=== PATIENT | male | born 1995 | race Caucasian/White ===

== ENCOUNTER 2018-02-08 12:11 | Emergency (ER) | payer MEDICAID ==
[~2018-02-08] VITALS: Ht 175.3 cm; Wt 63.5 kg
[2018-02-08 12:20] VITALS: BP_SYST 121
[2018-02-08] MEDS: DIPH-TET-PERTUS Vaccine 0.5 ML VIAL (ADACEL) I.M. ONE (13:23)
[2018-02-08] MEDS: KETOROLAC TROMETHAMINE 60 MG/2 ML VIAL IM ONE (13:24)
[2018-02-08] MEDS: BACITRACIN 1 GM OINT TP ONE (14:03)
[2018-02-08] MEDS ORDERED: BACITRACIN 1 GM OINT TP ONE (14:30)
[2018-02-08 14:55] VITALS: BP_SYST 120
== END 2018-02-08 14:55 | disposition home or self-care (01) ==
LOC: SED 12:11
DX: S90.31XA Contusion of right foot, initial encounter (principal); S70.211A Abrasion, right hip, initial encounter; S80.212A Abrasion, left knee, initial encounter; S80.211A Abrasion, right knee, initial encounter; S50.311A Abrasion of right elbow, initial encounter; R03.0 Elevated blood-pressure reading, without diagnosis of hypertension; Z90.89 Acquired absence of other organs; V89.9XXA Person injured in unspecified vehicle accident, initial encounter; Y93.89 Activity, other specified; Y92.410 Unspecified street and highway as the place of occurrence of the external cause; Y99.8 Other external cause status
CPT/HCPCS: 73630; 90471; 90715; 96372; 99284; J1885

== ENCOUNTER 2018-02-18 13:05 | Emergency (ER) | payer MEDICAID ==
[~2018-02-18] VITALS: Ht 175.3 cm; Wt 63.5 kg
[2018-02-18 13:12] VITALS: BP_SYST 150
[2018-02-18] MEDS ORDERED: PROCHLORPERAZINE EDISYLATE 10 MG/2 ML VIAL IM ONE (13:45)
[2018-02-18] MEDS ORDERED: KETOROLAC TROMETHAMINE 60 MG/2 ML VIAL IM ONE (13:45)
[2018-02-18 14:28] VITALS: BP_SYST 129
== END 2018-02-18 14:45 | disposition home or self-care (01) ==
LOC: SED 13:05
DX: S70.01XA Contusion of right hip, initial encounter (principal); R51 Headache; V29.40XA Motorcycle driver injured in collision with unspecified motor vehicles in traffic accident, initial encounter; Y93.55 Activity, bike riding; Y92.89 Other specified places as the place of occurrence of the external cause; Y99.8 Other external cause status; Z90.89 Acquired absence of other organs; R03.0 Elevated blood-pressure reading, without diagnosis of hypertension
CPT/HCPCS: 70450; 96372; 99284; J0780; J1885